=== PATIENT | male | born 1970 | race Caucasian/White ===

== ENCOUNTER 2017-06-10 19:12 | Emergency (ER) | payer MEDICAID, OTHER ==
[2017-06-10 19:12] VITALS: BMI 26.9
[2017-06-10 19:17] VITALS: TEMP 97.9
[2017-06-10 19:58] VITALS: RESP 18; O2SAT 99
--- NOTE | 2017-06-10 20:03 | ED PDOC ---
HPI: Hypertension/Hypotension Time Seen by Provider: 06/10/17 19:35 Chief Complaint (Nursing): High Blood Pressure Chief Complaint (Provider): High blood pressure History Per: Patient History/Exam Limitations: no limitations Onset/Duration Of Symptoms: Hrs Additional Complaint(s): Patient is a 46 y/o male with no significant past medical history presenting to the emergency department for elevated blood pressure today. Reports that his blood pressure is normally around 120/80 but notes that today after taking cold medication and due to mild anxiety his blood pressure has increased. Denies any other complaints. PCP: none provided. Past Medical History Reviewed: Historical Data, Nursing Documentation, Vital Signs Vital Signs: Last Vital Signs Temp 97.9 F 06/10/17 19:14 Pulse 81 06/10/17 19:58 Resp 18 06/10/17 19:58 BP 141/101 H 06/10/17 19:58 Pulse Ox 99 06/10/17 19:58 - Medical History PMH: Denies: HIV, HTN, Chronic Kidney Disease - Surgical History Surgical History: Appendectomy (4 YRS AGO), Back Surgery - Family History Family History: States: Unknown Family Hx - Social History Current smoker - smoking cessation education provided: No Ex-Smoker (has not smoked in the last 12 months): Yes Alcohol: None - Home Medications Home Medications: Ambulatory Orders Medication Instructions Recorded Multivitamin/Iron/Folic Acid 1 tab PO DAILY 08/04/15 [Centrum Complete Multivit Tab] Unknown Cholesterol Medication 1 tab PO DAILY 08/04/15 Benzonatate [Tessalon Perle] 100 mg PO TID PRN #30 capsule 08/05/15 Loratadine [Claritin] 10 mg PO DAILY #30 tab 08/05/15 - Allergies Allergies/Adverse Reactions: Allergies Allergy/AdvReac Type Severity Reaction Status Date / Time No Known Allergies Allergy Verified 07/20/15 20:54 Review of Systems ROS Statement: Except As Marked, All Systems Reviewed And Found Negative Psych: Positive for: Anxiety (mild) Physical Exam - Reviewed Nursing Documentation Reviewed: Yes Vital Signs Reviewed: Yes - Physical Exam Appears: Positive for: Well, Non-toxic, No Acute Distress Head Exam: Positive for: ATRAUMATIC, NORMAL INSPECTION, NORMOCEPHALIC Skin: Positive for: Normal Color, Warm, Dry Eye Exam: Positive for: Normal appearance Neck: Positive for: Normal, Painless ROM Cardiovascular/Chest: Positive for: Regular Rate, Rhythm Respiratory: Negative for: Accessory Muscle Use, Respiratory Distress Extremity: Positive for: Normal ROM. Negative for: Pedal Edema Neurologic/Psych: Positive for: Alert, Oriented (x3) - ECG O2 Sat by Pulse Oximetry: 99 (RA) Pulse Ox Interpretation: Normal - Progress ED Course And Treament: Patient states he has stopped use of crystal meth 2 days ago. valium 5 mg x 1 dose in ED Repeat BP 141/99 d/w him to stopped use and f/u this week with pmd for further evaluation. Disposition - Clinical Impression Clinical Impression: Elevated blood pressure reading - Patient ED Disposition Is Patient to be Admitted: No - Disposition Referrals: [facility] [Outside] Disposition: Routine/Home Disposition Time: 20:35 Condition: FAIR Additional Instructions: PLEASE STOP OVER THE COUNTER MEDICATIONS FOR COLD/COUGH. AVOID ALCOHOL/SMOKING. WE ENCOURAGE LOW SODIUM DIET AT THIS TIME F/U WITH YOUR PMD FOR FURTHER EVALUATION OF BLOOD PRESSURE THIS WEEK Instructions: Hypotension (ED), Hypertension (ED) Forms: Audience (Tongan)
[2017-06-10 21:11] VITALS: BP 147/99; PULSE 78
== END 2017-06-10 22:05 | disposition home or self-care (01) ==
LOC: H.ER 19:12
DX: I10 Essential (primary) hypertension (principal)

== ENCOUNTER 2018-03-11 14:49 | Emergency (ER) | payer OTHER ==
[2018-03-11 14:49] VITALS: BMI 26.9
--- NOTE | 2018-03-11 16:03 | ED PDOC ---
HPI: Male Pain Chief Complaint (Nursing): Male Genitourinary Additional Complaint(s): 47 y/o male with no significant PMH presents to the ED for priaprism x 3 weeks. Pt had penile implant surgery in [place] 3 weeks ago by his primary urologist. Urologist advised pt to keep device partially inflated for 2 weeks to allow for healing, and to deflate the device after the 2nd week. Pt was not shown by urologist how to appropriately deflate device. Pt's surgical site healed well without signs of infection, but is unable to deflate the device. Pt has been trying to deflate for 1 week but decided to seek help today. He has no established urologist here in the [facility]. Pt currently c/o penile soreness and discomfort, especially when wearing tight clothing. He has been taking pain medication prescribed by his urologist in [place], unsure of medication name, last dose this morning 11am. Denies fever, chills, penile discharge, scrotal redness or swelling, scrotal pain, leg pain, abdominal pain, N/V, diarrhea, urinary symptoms. Past Medical History Reviewed: Historical Data, Nursing Documentation, Vital Signs Vital Signs: Last Vital Signs Temp 98.2 F 03/11/18 14:52 Pulse 104 H 03/11/18 14:52 Resp 18 03/11/18 14:52 BP 173/116 H 03/11/18 14:52 Pulse Ox 100 03/11/18 14:52 - Medical History PMH: Denies: HIV, HTN, Chronic Kidney Disease - Surgical History Surgical History: Appendectomy (4 YRS AGO), Back Surgery - Family History Family History: States: Unknown Family Hx - Home Medications Home Medications: Ambulatory Orders Medication Instructions Recorded Multivitamin/Iron/Folic Acid 1 tab PO DAILY 08/04/15 [Centrum Complete Multivit Tab] Unknown Cholesterol Medication 1 tab PO DAILY 08/04/15 Benzonatate [Tessalon Perle] 100 mg PO TID PRN #30 capsule 08/05/15 Loratadine [Claritin] 10 mg PO DAILY #30 tab 08/05/15 - Allergies Allergies/Adverse Reactions: Allergies Allergy/AdvReac Type Severity Reaction Status Date / Time No Known Allergies Allergy Verified 07/20/15 20:54 Review of Systems ROS Statement: Except As Marked, All Systems Reviewed And Found Negative Constitutional: Negative for: Fever, Chills Cardiovascular: Negative for: Chest Pain, Palpitations Respiratory: Negative for: Cough, Shortness of Breath Gastrointestinal: Negative for: Nausea, Vomiting, Abdominal Pain Genitourinary Male: Positive for: Scrotal Pain, Penile Pain, Other (erect penis x 3 weeks). Negative for: Dysuria, Frequency, Incontinence, Hematuria, Penile Discharge, Rash Musculoskeletal: Negative for: Neck Pain, Back Pain Skin: Negative for: Rash, Lesions, Bruising Neurological: Negative for: Weakness, Numbness, Altered Mental Status, Headache, Dizziness Physical Exam - Reviewed Nursing Documentation Reviewed: Yes Vital Signs Reviewed: Yes - Physical Exam Appears: Positive for: Well, Non-toxic, No Acute Distress Head Exam: Positive for: ATRAUMATIC, NORMAL INSPECTION, NORMOCEPHALIC Skin: Positive for: Normal Color, Warm, DRY Eye Exam: Positive for: EOMI, Normal appearance, PERRL Neck: Positive for: Normal, Painless ROM Cardiovascular/Chest: Positive for: Regular Rate, Rhythm Respiratory: Positive for: CNT, Normal Breath Sounds Pulses-Femoral (L): 2+ Pulses-Femoral (R): 2+ Pulses-Radial (L): 2+ Pulses-Radial (R): 2+ Gastrointestinal/Abdominal: Positive for: Normal Exam, Bowel Sounds, Soft. Negative for: Tenderness Male Genital Exam: Positive for: other (penis erect from inflated penile implant. well healing surgical scar in midline of scrotum. No signs of infection. able to feel inflation device in scrotum, unable to access button to deflate implant without severe pt discomfort. ). Negative for: epididymal tenderness, erythema, inguinal tenderness, lesions, scrotum tenderness (R), scrotum tenderness (L), testicular tenderness (R), testicular tenderness (L), urethral discharge Back: Positive for: Normal Inspection Extremity: Positive for: Normal ROM Lymphatic: Positive for: Normal Exam Neurologic/Psych: Positive for: Alert, Oriented - ECG O2 Sat by Pulse Oximetry: 100 Medical Decision Making Medical Decision Makin47 y/o male with no significant PMH presents to the ED for priaprism x 3 weeks. Pt had penile implant surgery in [place] 3 weeks ago by his primary urologist. Urologist advised pt to keep device partially inflated for 2 weeks to allow for healing, and to deflate the device after the 2nd week. Pt was not shown by urologist how to appropriately deflate device. Pt's surgical site healed well without signs of infection, but is unable to deflate the device. Pt has been trying to deflate for 1 week without success. He has no established urologist here in the [place]. Pt currently c/o penile soreness and discomfort, especially when wearing tight clothing. He has been taking pain medication prescribed by his urologist in [place], unsure of medication name, last dose this morning 11am. Denies fever, chills, penile discharge, scrotal redness or swelling, scrotal pain, leg pain, abdominal pain, N/V, diarrhea. Exam significant for erect penis without discharge, erythema, or swelling. Well healing surgical wound on scrotum, no signs of infection. Able to feel inflation device in scrotum but unable to access button to deflate the penile implant. Offered pt pain medication, pt refused. Dr. Joss Hutchinson evaluated pt, unable to access deflation button. Initial plan: --consult urology saw pt and was unable to access deflation button. Dr. Johnson states penile implants are out of scope of his practice and recommends pt followup with urology outpatient for deflation and possibly surgical revision of implant. Attempting to call urologists at [facility] for possible pt transfer. After updating pt on our process to find transfer, pt would rather go home and continue to attempt to deflate device on his own. As situation is not considered a surgical emergency, will discharge pt with appropriate urologist followup. Pt thoroughly educated on signs to return to ED including worsening of pain, fevers, chills, signs of infection. Will continue to attempt to establish urology followup with experience in surgical penile implant. Will contact pt with any updates. Offered pt pain medication again, pt refused. Impression: priaprism Plan: Continue pain medication as prescribed Followup with Dr. Johnson (urology) within 2 days Return to ED if symptoms worsen Disposition - Clinical Impression Clinical Impression: Priapism - Disposition Referrals: Robbie Johnson MD [Medical Doctor] - Disposition: Routine/Home Disposition Time: 18:20 Condition: STABLE Additional Instructions: Continue pain medication as prescribed Followup with urology within 2 days Return to ED if symptoms worsen Instructions: Priapism Forms: [employer] (German), [employer] [facility] School/Work Excuse
[2018-03-11 18:42] VITALS: BP 145/87; PULSE 87; RESP 17; TEMP 98.4
[2018-03-11 22:00] VITALS: O2SAT 100
== END 2018-03-11 18:42 | disposition home or self-care (01) ==
LOC: H.ER 14:49
DX: N48.30 Priapism, unspecified (principal)